=== PATIENT | female | born 1950 | race Caucasian/White ===

== ENCOUNTER 2017-12-20 18:51 | Emergency (ER) | payer MEDICARE, SELFPAY ==
[2017-12-20 18:52] VITALS: BP 153/82; PULSE 78; RESP 18; TEMP 36.7; O2SAT 97; BMI 35.6
--- NOTE | 2017-12-20 19:32 | ED.DCSUM_ITS ---
- ER Visit Summary Date of Service: 12/20/17 Chief Complaint: Dog bite History of Present Illness: The patient is a [address] Aviles. She is right-hand dominant. Her tetanus is up-to-date. The dog's immunizations are up-to-date. She reports that she was playing with her puppy and he went to grab something out of her hand and bit her small finger. She has a throbbing pain is 1 out of 10 currently. Is 3 out of 10 with running water over it. She denies any paresthesias. Physical Examination: Vitals: Stable. Afebrile. General: Well-nourished and well-developed. Head: Normocephalic atraumatic. Neck: Supple, no lymphadenopathy. No JVD. Nontender. Cardiovascular: Regular rate and rhythm. No murmurs. Respiratory: No respiratory distress. Clear to auscultation bilaterally. Abdominal: Soft, nontender, nondistended, normal bowel sounds. No guarding, rebound, or peritoneal signs. Back: Nontender. Extremities: 1.5 cm laceration to the anterior surface of the distal phalanx of her small finger. No active bleeding. Skin: Normal color, no rash. Neurologic: Alert and oriented ?3. Cranial nerves II through XII are intact. Normal strength and sensation. Psych: Normal affect. Emergency Department Course and Treatment: Had a prolonged discussion with the patient about treatment options and the risk of infection. She is opted to let this heal by secondary intention. I feel that is a very reasonable course of action. She is given a dose of Augmentin here. Treatment Plan: Patient will be discharged on Augmentin. Instructed follow-up her primary care physician in 3-5 days if not improving. Return to the emergency department for any worsening symptoms. Disposition: To home in improved and stable condition. Impression: 1. Dog bite right small finger, not repaired. This note was generated with [employer] dictation software. It may contain incorrect words, spelling, and punctuation that were not noted in review of the chart prior to signing ED Disposition - Plan for ED Patient: Disposition: Home or Assisted Living Chief Complaint: Bite Instructions: ED Bite Dog Prescriptions: Amox/Clavulanate Tablet [Augmentin Tablet] 875 mg PO Q12H #14 tablet Referrals: Beatriz Aviles MD [Primary Care Provider] - 3-5 Days if not improving
[2017-12-20] MEDS: Amox/Clavulanate 875 MG Tablet PO (20:04)
[2017-12-20 20:10] VITALS: BP 128/69
== END 2017-12-20 20:15 | disposition home or self-care (01) ==
LOC: ED 19:58
PROVIDERS: Emergency Provider Emergency Medicine; Family Provider Internal Medicine; PCP Internal Medicine
DX: S61.256A Open bite of right little finger without damage to nail, initial encounter (principal); W54.0XXA Bitten by dog, initial encounter; Y93.9 Activity, unspecified; Y92.9 Unspecified place or not applicable; Y99.9 Unspecified external cause status
CPT/HCPCS: 99283

== ENCOUNTER → 2018-01-09 10:20 | Outpatient (CLI) | payer MEDICARE, SELFPAY ==
--- NOTE | 2018-01-09 10:22 | RAD_ITS ---
STUDY: X-RAY - RIGHT KNEE REASON FOR EXAM: Female, 67 years old. Pain after injury TECHNIQUE: 4 view(s) of the knee. COMPARISON: None. FINDINGS: Normal visualized distal femur. Normal visualized proximal tibia and fibula. Normal proximal tibiofibular articulation. There is no demonstrated fracture. Mild narrowing of the medial femorotibial compartment. Normal lateral femorotibial compartment. Normal patellofemoral articulation. The soft tissue structures are unremarkable. RAD/Knee 4 or More Views IMPRESSION: Mild medial joint space narrowing. Electronically Signed: Gibran Cota MD at 10:58 EDT , Service support ,
== END ==
PROVIDERS: Family Provider Internal Medicine; PCP Internal Medicine; Visit Provider Physician Assistant
DX: M25.561 Pain in right knee (principal)
CPT/HCPCS: 73564

== ENCOUNTER 2020-06-23 11:26 | Outpatient (RCR) | payer MEDICARE, SELFPAY ==
[2020-06-22] MEDS: COVID-19 VACC, MRNA(PFIZER)/PF 30 MCG/0.3 ML SYRINGE IM (18:20)
[2020-07-13] MEDS: COVID-19 VACC, MRNA(PFIZER)/PF 30 MCG/0.3 ML SYRINGE IM (17:53)
== END 2020-09-26 23:59 ==
LOC: IMMUN 11:26
PROVIDERS: PCP Internal Medicine; Visit Provider Family Medicine
DX: Z23 Encounter for immunization (principal)
CPT/HCPCS: 0001A; 0002A; 91300

== ENCOUNTER 2020-08-23 10:30 | Outpatient (RCR) | payer MEDICARE, SELFPAY ==
--- NOTE | 2020-08-07 08:40 | HP.PTEVAL_ITS ---
Patient's Visit Information INGE EDGE is a 69 year old F referred to Physical Therapy by Dr. Amanda Langford DO with a diagnosis of Right Greater Tuberosity Fracture of Shoulder DOI: 07/08/2020. Date of Evaluation: 08/07/20 Physical Therapist: Olga Flood DPT - Visit Plan Frequency: 2x /Week Duration: 4 Weeks Plan: Right Shoulder Fracture 07/08/2020- focus on ROM and scapular s/s. HEP Given IE: table walk away, wall wash, supine cane flexion, standing cane abduction - Subjective Fell off a ladder 07/08/2020- the Right shoulder was sore but her bicep hurt worse and has a big bruise. So she finally decided to see MD last week- took x- rays and repots that the arm is fractured. The pain at this point is on the top of the shoulder but mostly in the biceps. Right hand domiante. Worst: 5/10 Agg: moving the arm overhead. Describes the pain as dull and achy. Eases: keeping in towards the body. Best: 0/10. The pain does not radiate past the below the elbow. The N/T in the hand- no loss of associate professor of geography strength or finger dexte rity. No neck pain, YOUNG,blurred vision or dizziness. Is very active- and is fully I with ADL's and does drive. Sleep: not disturbed- all positions. X-ray which showed a greater tuberosity fracture- no MRI at this time. PMHx/Meds: no changes since she saw MD. - Objective Posture: FH, RS- guarding of the right UE- holds hand when sitting- can correct with verbal cues. Gait: decreased right arm swing and trunk rotation. Palpation: tender to touch at AC joint- and bicipital groove. Observation: bruising on the bicep. ROM: Cervical: WNL, AROM Shoulder: Flexion: 115 degrees, Abd: 85 degrees IR: Thumb to level T12 ER: 40 degrees. PROM Shoulder: Flexion: 150 degrees, Abd: 160 degrees, IR/TR: not tested, Elbow: WFL, Wrist/Hand: WFL- Mechanical Product Engineer: good. Strength: Scap: fair Shoulder: at neutral: 4+/5 with the exception of ER: 4-/5 with discomfort. Elbow: 4+/5, Mechanical Product Engineer: 60 lbs of force bilateral. Special Test: Impingment: positive, empty can: positive, lift off: positive. - Goals Goal 1:: Patient will be I with HEP and progression Goal Time Frame: 4-6 Weeks Goal 2:: Patient will demo full AROM of the right shoulder Goal Time Frame: 4-6 Weeks Goal 3:: Patient will maintain proper posture t/o tx session to demo increased scapular s/s. Goal Time Frame: 4-6 Weeks - Rehabilitation Potential Physical Therapy Diagnosis: Patient presents s/p fall with right shoulder fracture. She has decreased ROM, strength and muscular endurance leading to poor posture and increased pain with ADL's. Rehabilitation Potential: Good - Anticipated Interventions Patient/Client Instruction: Educate patient on: Benefits of Fitness Program Therapeutic Exercise to Include: Strength training, Endurance training, Body mechanics, Postural training, Flexibilty training, Neuromotor development, Passive ROM, Active ROM, Dynamic Lumbar Stabilization, Scapular Strength/Stabilization For the Purpose of:: To improve muscle performance and motor function TENS: Yes Cryotherapy (ice pack, ice massage): Yes Thermo therapy (hot pack): Yes Ultrasound (thermal/non thermal): No Thank you for the opportunity to evaluate your patient. For Medicare and Medicare HMO plans, please review the plan of care and approve it. It will need to be FAXED BACK to us at [phone] for Medicare purposes. For Medicare only, by signing this I certify the plan of care. Please let me know if there are questions or concerns regarding this plan of care. Physician Signature: Date:
--- NOTE | 2020-08-24 07:20 | HP.PTDCSUM ---
It has been my pleasure to treat INGE EDGE referred by Dr. Amanda Langford DO, with the diagnosis of Right Greater Tuberosity Fracture of Shoulder DOI: 07/08/2020 for a total of 6 visit(s). Discharge Date: Please see the following information for a summary of their discharge status. Subjective: pt would like today to be last visit. Right shoulder Pain Intensity (Out of 10): 0 % Improvement: 95 Objective/Function: REviewd HEP with pt - see below. PT feels ready for d/c. Pt has met all her goals set at eval. 95% imporved. STill continues with some OH weakness Pt encouraged to cont with HEP. Dr mathis appt 08-31-20. Goal 1:: Patient will be I with HEP and progression Goal 2:: Patient will demo full AROM of the right shoulder Goal 3:: Patient will maintain proper posture t/o tx session to demo increased scapular s/s. Plan: Pt is d/c today. If there are questions or concerns regarding this patient's physical therapy, please feel free to call me at [phone]. Thank you for the referral of this patient. Sincerely, JESSE WeinsteinT
== END 2020-08-23 19:00 | disposition home or self-care (01) ==
LOC: PT 10:30
PROVIDERS: PCP Internal Medicine; Referring Provider Orthopaedic Surgery; Visit Provider Orthopaedic Surgery
DX: S42.251D Displaced fracture of greater tuberosity of right humerus, subsequent encounter for fracture with routine healing (principal)
CPT/HCPCS: 97110; 97161